=== PATIENT | female | born 1930 | race Caucasian/White ===

== ENCOUNTER 2016-10-20 08:08 | Day surgery (SDC) | payer MEDICARE, OTHER ==
[~2016-10-20] VITALS: Ht 157.5 cm; Wt 63.2 kg
[2016-10-20] VITALS (14 sets, daily range): BP systolic 99–132; BP diastolic 50–63; PULSE 59–66; RESP 11–20; TEMP 97.4–97.7; O2SAT 91–100; Ht 157.5 cm; Wt 63.2 kg
[~2016-10-20 08:08] MED LIST: CEFAZOLIN 1 GRAM INJECTION IV ONE; DONE5TAB14 PO; FENTANYL 100mcg/2ml INJECTION IV PRN; LIDOCAINE 1% (10mg/ml) 2ml SDV INJ ONE; LORA-326 PO; LR 1,000 ML IV SCH; MIDAZOLAM 5mg/5ml INJECTION IV PRN
--- OUTSIDE RECORDS SUMMARY | 2016-10-20 08:12 | XMS REPORT | Continuity of Care Document ---
Author Author [facility] Organization [facility] Address Unknown Phone Unavailable Support Name Relationship Address Phone NOLVIA HUNG DO Caregiver [facility] [address] [place] [address] PORTER JAMES DO Caregiver [address] [place] [phone] HALIMA MAZA (DPOA) Next Of Kin [address] [place], [place] [id number] Insurance Providers Payer Name Policy Number Subscriber Name Relationship Medicare [id number] Essence Bear 17 Self [employer] [place] [id number] Essence Bear 17 Self Advance Directives Directive Response Recorded Date/Time Advanced Directives Type Unable to Obtain 01/27/14 10:30am Problems Medical Problems Problem Onset Date Status Sinusitis Unknown Active Sinusitis Unknown Active Contusion, arm, upper Unknown Active Contusion, arm, upper Unknown Active Medications Medication Dose Route Sig Days/Qty Instructions Order Date Discontinued Date Status Amoxicillin Trihydrate 875 Mg PO TWICE A DAY 20 Qty 01/20/14 01/20/14 Discontinued Amoxicillin Trihydrate 500 Mg PO THREE TIMES A DAY 30 Qty 01/20/14 Active Donepezil Hcl 5 Mg PO BEDTIME 01/27/14 Active Loratadine 10 Mg PO DAILY 01/27/14 Active Social History Social History Problem Response Recorded Date/Time Smoking Status Unknown if ever smoked 01/27/2014 10:41am Hospital Discharge Instructions No hospital discharge instructions. Plan of Care No plan of care. Functional Status No functional status results. Allergies, Adverse Reactions, Alerts Allergen Type Severity Reaction Status Last Updated No Known Allergies Active 01/27/14 Immunizations No immunization records. Vital Signs Acute Vital Signs Vital Response Date/Time Temperature (Fahrenheit) 97.6 deg F (96.8 - 99.1) Temperature (Calculated Celsius) 36.91626 degrees C (36.0 - 37.3) Pulse Rate (adult) 74 bpm (60 - 100) Respiratory Rate 18 breaths/min (10 - 20) O2 Sat by Pulse Oximetry 97 % (90 - 100) Blood Pressure 114/56 mm Hg Height 5 ft 0 in Weight 116 lb Body Mass Index 22.0 kg/m^2 Results Test Source Date Result Interp. Ref. Range Comments Alanine Aminotransferase (ALT/SGPT) January 20, 2014 2:45pm 24 U/L N 9-52 Albumin January 20, 2014 2:45pm 4.3 G/DL N 3.5-5.0 Albumin/Globulin Ratio January 20, 2014 2:45pm 1.6 RATIO N 1.1-2.2 Alkaline Phosphatase January 20, 2014 2:45pm 60 U/L N 38-126 Anion Gap January 20, 2014 2:45pm 9 MEQ/L N 5-15 Aspartate Amino Transf (AST/SGOT) January 20, 2014 2:45pm 23 U/L N 14-36 BUN/Creatinine Ratio January 20, 2014 2:45pm 38 RATIO H 6-26 Basophils # (Auto) January 27, 2014 10:50am 0.0 T/MM3 N 0-0.2 Basophils (%) (Auto) January 27, 2014 10:50am 0.7 % N 0-2 Blood Urea Nitrogen January 20, 2014 2:45pm 19.0 MG/DL H 7-17 Calcium Level January 20, 2014 2:45pm 9.6 MG/DL N 8.4-10.2 Calculated Osmolality January 20, 2014 2:45pm 276 MOSM/KG N 261-280 Carbon Dioxide Level January 20, 2014 2:45pm 29 MEQ/L N 22-30 Chloride Level January 20, 2014 2:45pm 104 MEQ/L N 98-107 Creatinine January 20, 2014 2:45pm 0.5 MG/DL L 0.7-1.2 Eosinophils # (Auto) January 27, 2014 10:50am 0.0 T/MM3 N 0-0.5 Eosinophils (%) (Auto) January 27, 2014 10:50am 0.7 % N 0-4 Globulin January 20, 2014 2:45pm 2.7 G/DL N 2.4-3.6 Glucose Level January 20, 2014 2:45pm 114 MG/DL H 65-110 Hematocrit January 27, 2014 10:50am 39.0 % N 36-46 Hemoglobin January 27, 2014 10:50am 12.7 GM/DL N 12-16 Lymphocytes # (Auto) January 27, 2014 10:50am 0.4 T/MM3 L 1-4.8 Lymphocytes (%) (Auto) January 27, 2014 10:50am 9.9 % L 23-45 Mean Corpuscular Hemoglobin January 27, 2014 10:50am 30.8 UUG N 26-34 Mean Corpuscular Hemoglobin Concent January 27, 2014 10:50am 32.6 GM/DL N 31-37 Mean Corpuscular Volume January 27, 2014 10:50am 94.4 UM3 N 80-100 Mean Platelet Volume January 27, 2014 10:50am 9.6 UM3 N 9.4-12.4 Monocytes # (Auto) January 27, 2014 10:50am 0.4 T/MM3 N 0-0.8 Monocytes (%) (Auto) January 27, 2014 10:50am 8.7 % N 0-9.0 Neutrophils # (Auto) January 27, 2014 10:50am 3.6 T/MM3 N 1.8-7.7 Neutrophils (%) (Auto) January 27, 2014 10:50am 80.0 % H 33-66 Platelet Count January 27, 2014 10:50am 224 T/MM3 N 130-400 Potassium Level January 20, 2014 2:45pm 3.8 MEQ/L N 3.6-5 RDW Standard Deviation January 27, 2014 10:50am 47.0 FL N 36.9-50.2 Red Blood Count January 27, 2014 10:50am 4.13 M/MM3 N 4.00-5.20 Sodium Level January 20, 2014 2:45pm 142 MEQ/L N 134-144 Total Bilirubin January 20, 2014 2:45pm 1.60 MG/DL H 0.20-1.30 Total Protein January 20, 2014 2:45pm 7.0 G/DL N 6.3-8.2 Urine Bacteria January 20, 2014 2:30pm None seen - Has specimen been collected/obtained? Y Urine Bilirubin January 20, 2014 2:30pm Negative - Has specimen been collected/obtained? Y Urine Blood January 20, 2014 2:30pm 1+ H - Has specimen been collected/ obtained? Y Urine Collection Type January 20, 2014 2:30pm Voided-not cc-midstr - Has specimen been collected/obtained? Y Urine Color January 20, 2014 2:30pm Yellow - Has specimen been collected /obtained? Y Urine Glucose (UA) January 20, 2014 2:30pm Negative - Has specimen been collected/obtained? Y Urine Ketones January 20, 2014 2:30pm Negative - Has specimen been collected/obtained? Y Urine Leukocyte Esterase January 20, 2014 2:30pm Trace H - Has specimen been collected/obtained? Y Urine Nitrite January 20, 2014 2:30pm Negative - Has specimen been collected/obtained? Y Urine Protein January 20, 2014 2:30pm Negative - Has specimen been collected/obtained? Y Urine RBC January 20, 2014 2:30pm 1-3 /HPF - Has specimen been collected /obtained? Y Urine Specific [place] January 20, 2014 2:30pm 1.015 - Has specimen been collected/obtained? Y Urine Squamous Epithelial Cells January 20, 2014 2:30pm 0-5 - Has specimen been collected/obtained? Y Urine Turbidity January 20, 2014 2:30pm Clear - Has specimen been collected/obtained? Y Urine Urobilinogen January 20, 2014 2:30pm 1.0 EU/DL - Has specimen been collected/obtained? Y Urine WBC January 20, 2014 2:30pm 1-3 /HPF - Has specimen been collected /obtained? Y Urine pH January 20, 2014 2:30pm 6.0 - Has specimen been collected/ obtained? Y White Blood Count January 27, 2014 10:50am 4.5 T/MM3 N 4.5-11.0 Chemistry Specimen Hemolysis January 20, 2014 2:45pm < 15 0-25 0-25: No Hemolysis.26-70: Slight Hemolysis - can falsely elevate K and Urine Protein. 71-285: Moderate Hemolysis - can falsely elevate K, Troponin I, CA 19-9, PTH, CSF GLucose, and Urine Protein, and can falsely decrease Phenytoin. 286-999: Gross Hemolysis - can falsely elevate K, Troponin I, CA 19-9, PTH, CSF Glucose, and Urine Protine, and can falsely decrease Phenytoin. Recommend specimen recollection. Turbidity January 20, 2014 2:45pm < 20 0-20 Glomerular Filtration Rate Calc January 20, 2014 2:45pm 118 - Immature Granulocyte # (Auto) January 27, 2014 10:50am 0.00 T/MM3 N 0.00- 0.03 Immature Granulocyte % (Auto) January 27, 2014 10:50am 0.0 % N 0.0-0.5 Icterus Index January 20, 2014 2:45pm < 2 0-7 Procedures No known history of procedures. Encounters Encounter Location Date/Time Departed Emergency Room [facility] 01/27/14 10:23am Departed Emergency Room [facility] 01/20/14 12:59pm Recent Diagnosis
--- OUTSIDE RECORDS SUMMARY | 2016-10-20 08:12 | XMS REPORT | Continuity of Care Document ---
Author Author [facility] Organization [facility] Address Unknown Phone Unavailable Support Name Relationship Address Phone NOLVIA HUNG DO Caregiver [facility] [address] [place] [address] PORTER JAMES DO Caregiver [address] [place] [phone] HALIMA MAZA (DPOA) Next Of Kin [address] [place], [place] [id number] Insurance Providers Payer Name Policy Number Subscriber Name Relationship Medicare [id number] Essence Bear 17 Self [place] [employer] [place] [id number] Essence Bear 17 Self Advance Directives Directive [...] F (96.8 - 99.1) Temperature (Calculated Celsius) 36.48334 degrees C (36.0 - 37.3) Pulse Rate [...] specimen been collected /obtained? Y Urine Specific [place] January 20, 2014 2:30pm 1.015 - Has [...] Encounters Encounter Location Date/Time Departed Emergency Room [facility] 01/27/14 10:23am Departed Emergency Room [facility] 01/20/14 12:59pm Recent Diagnosis
--- OUTSIDE RECORDS SUMMARY | 2016-10-20 08:12 | XMS REPORT | Referral Summary ---
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 Discharge Diagnosis: Plantar fasciitis Discharge Diagnosis: Foot swelling Discharge Disposition: 01-Home or Self Care Attending Physician: Reyes Sanchez PA-C Admitting Physician: Reyes Sanchez PA-C Vital Signs Most recent to 1 oldest [Reference Range]: Temperature Tympanic 36.5 degC [36.6-38.1 degC] *LOW* (07/11/15 1:55 PM) Apical Heart Rate 74 bpm [60-100 bpm] (07/11/15 1:55 PM) Blood Pressure 114/66 mmHg [90-140/60-90 mmHg] (07/11/15 1:55 PM) SpO2 96 % (07/11/15 1:55 PM) Problem List No data available for this section Allergies, Adverse Reactions, Alerts No Known Medication Allergies Medications donepezil 10 mg, Oral, Bedtime (once a day), 0 Refill(s) Start Date: 07/11/15 Status: Ordered Results No data available for this section Immunizations No data available for this section Procedures No data available for this section Social History Social History Type Response Smoking Status Never smoker Assessment and Plan No data available for this section
--- NOTE | 2016-10-20 09:18 | ANESPREOP ---
Anesthesia Record Date and Time DATE: 10/20/16 TIME: 09:17 Proposed Surgical Procedure MOHS EXCISION SQUAMOUS CELL CA OF RT. DORSAL HAND WITH LOCAL VS. FLAP NPO since: MN Allergies: Coded Allergies: No Known Allergies (Unverified , 10/19/16) Ht/Wt/BMI Height: 5 ' 2.00 " Weight: 63.200 kg BMI: 25.5 kg/m2 Vital Signs Date Time Temp Pulse Resp B/P Pulse Ox O2 Delivery O2 Flow Rate FiO2 10/20/16 08:44 97.4 62 14 132/63 96 Room Air Medications Inpatient Medications Current Medications Medications (Trade) Dose Ordered Sig/Enmanuel Start Time Stop Time Status Last Admin Dose Admin Lactated Ringer's (Lactated Ringers) 1,000 ml @ 50 mls/hr Q20H 10/20/16 07:00 10/20/16 08:49 50 MLS/HR Midazolam HCl (Versed) 0.5-3MG IV PUSH Q10MIN PRN PRN PRN 10/20/16 08:00 Fentanyl (Fentanyl) 25-50 MCG IV PUSH PRN NOT... PRN PRN 10/20/16 08:00 Donepezil Hcl (Donepezil Hcl) 5 Mg Tablet, 5 MG PO HS, (Reported) Last Taken: on 10/19/162099 Loratadine (Claritin) 10 Mg Tablet, 10 MG PO DAILY, (Reported) Last Taken: on 10/19/16 Currently on Beta Rashmi: No Medical/Surgical History Anesthesia PMH: Reports: Arthritis, Cancer (SSC SKIN ), Other (DIMENTIA), Denies: Anesthesia Reactions (NO AIRWAY ISSUES), Glaucoma, Malignant Hyperthermia, Sleep Apnea Smoking Status: Never smoker Has pt. smoked today?: No Use Chewing Tobacco?: No Second Hand Exposure: No Substance Use Type: does not use Alcohol Intake: none HX of Last Menstrual Period: IN HER 50'S Past Surgical History Orthopedic Surgeries: Abdominal Surgeries: Genitourinary Surgeries: Cardiac Surgeries: Endocrine Surgeries: Reproductive Surgeries: Yes - BREAST BIOPSY, HYSTERECTOMY Neurological Surgeries: Ear Surgeries: Nose Surgeries: Throat Surgeries: Yes - TONSILLECTOMY Other Surgeries: Yes - WISDOM TEETH REMOVAL Anesthesia Adverse Reactions: FOUND none Family Hx of Anesthesia Advers: none Hx of Motion Sickness: No Physical Exam Respiratory: Bilat breath sounds equal, Lungs clear Cardiovascular: FOUND Regular rate, rhythm Airway Assessment Mallampati Score: II Neck Extension: Fair Overall Assessment: No Airway Concerns ASA: 3 Plan Anesthesia Plan: TIVA, LMA, GETA, MAC Discussion Discussed risks/options/alternatives of anesthesia and questions answered. Patient consents. Nursing pain assessment noted. Present: Family Member (DPOA at bedside to answer questions.) Attestation Statement Prior to the delivery of any anesthetic medication, I examined the patient, developed the plan, obtained the patient's consent and discussed the risk and benefits of the procedure with the patient/guardian. TRACEE RAHMAN CRNA Oct 20, 2016 09:18
--- NOTE | 2016-10-20 09:43 | NUR ---
Time out completed by Joe Delgado R.N.,Dr. Suarez, and Nathan Bran R.N. present with 2 fire risk noted. Ancef 1 gm IV given per Dr. Suarez written order by Joe Delgado R.N., see emar for time. Versed 1 mg IV at 0915 and Fentanyl 25 mcg IV given by Joe Delgado R.N., see emar for dose and times. Cautery at 20, lesion size 1.4, excision size 2.3 squamous cell right dorsal hand, tag at 12 distal. Await results. Results for margins negative given to Dr. Suarez.
--- NOTE | 2016-10-20 09:50 | NUR ---
CARDIAC TRANSITIONING PT OUT OF MODERATE SEDATION POST LESION REMOVAL PROCEDURE. PT DOZING ON CART WITH EYES CLOSED. NOTED TO HAVE BRIEF, SELF LIMITING RUN OF JUNCTIONAL RHYTHM, LESS THAN 10 SECONDS. PT RESPIRATIONS EVEN, UNLABORED AND UNCHANGED. PT DENIES ANGINA, SOA. PT THEN RETURNED TO BASELINE RHYTHM OF SB-SR WITH OCCASIONAL PAC'S BY SELF. RATE 58-63. M. AGPOON PRODUCTION REPRODUCTION MANAGER NOTIFIED, NO NEW ORDERS. WILL CONTINUE TO MONITOR PT.
[2016-10-20] MEDS ORDERED: MIDAZOLAM 2mg/2ml INJECTION ONE (10:27)
[2016-10-20] MEDS ORDERED: CEPH-583 PO (11:09)
[2016-10-20] MEDS ORDERED: ACET1TAB12 PO (11:09)
--- NOTE | 2016-10-20 11:11 | ANESPO ---
Post-Op Note Date 10/20/16 Time: 11:11 Status Pt Participated in Evaluation: Pt participated in person Vital Signs Date Time Temp Pulse Resp B/P Pulse Ox O2 Delivery O2 Flow Rate FiO2 10/20/16 09:55 61 16 119/56 100 Nasal Cannula 2.00 10/20/16 08:44 97.4 Respiratory Function: Airway patent, Regular respirations Cardiovascular Function: Regular pulse Mental Status: Alert/oriented Pain Level Intensity: 0 Hydration: Taking po fluids Complications during Recovery None apparent Follow-Up Instructions Instructions Per Surgeon TRACEE RAHMAN CRNA Oct 20, 2016 11:11
[2016-10-20] MEDS ORDERED: HYDROCODONE/APAP 5 mg/325 mg TABLET PO PRN (11:15)
[2016-10-20] MEDS ORDERED: ONDANSETRON 4mg/2ml INJECTION IV PRN (11:15)
[2016-10-20] MEDS ORDERED: ATROPINE 1mg/10ml Syringe IV PRN (11:15)
--- NOTE | 2016-10-20 12:31 | PDPROCED ---
Procedure Note Date 10/20/16 Procedure Name Excision of SCC right dorsal hand with frozen section guidance of margins and complex closure Procedure Detail Preop dx: SCC right dorsal hand first webspace Postop dx: Same Anesthesia: MAC EBL: Less than 15 ml Case: Clean Complications: None JASEN MAGAÑA MD Oct 20, 2016 12:31
--- NOTE | 2016-10-20 16:58 | OPNOTEF ---
DATE OF OPERATION 10/20/2016 PREOPERATIVE DIAGNOSIS Squamous cell carcinoma right dorsal hand. POSTOPERATIVE DIAGNOSIS Squamous cell carcinoma right dorsal hand. OPERATION Excision of squamous cell carcinoma right dorsal hand with complex closure. Lesion size was 1.4 cm. Excision size was 2.3 cm and final defect was 3.2 cm. SURGEON Ana Suarez M.D. ANESTHESIA MAC INDICATIONS The patient is an 86-year-old woman who was referred by Dr. 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 She did present with her son, Geoffrey, on her initial visit. A shave biopsy had been performed by Dr. Gibson on 09/15/2016 with pathology showing squamous cell carcinoma, moderately well differentiated, present at the margins. The patient was unsure of how long the lesion had been present. The patient did deny bleeding but states that it was painful when she hits it. They denied any personal or family history of skin cancer. On exam, she had a hyperkeratotic and erythematous lesion of her right dorsal hand overlying the first web space. In detailed discussion with the patient and her son preoperatively, the risks, benefits and alternatives of excision of the lesion with frozen section guidance of margins and closure were reviewed including, but not limited to, bleeding, infection, poor or keloid scarring, residual and/or recurrent disease, possible partial or complete loss of the flap or graft. The son understood and wished to proceed. DESCRIPTION OF PROCEDURE The patient was marked preoperatively and then, after suitable IV sedation, the hand was prepped and draped in the usual sterile manner. The area was then infiltrated with 1% lidocaine with epinephrine. The lesion was excised and handed off as a specimen with a tag at the 12 o'clock margin. Hemostasis throughout was obtained with electrocautery. Subsequent pathologic evaluation revealed squamous cell carcinoma with clear margins. The patient was then brought to the operating room and again prepped and draped in the usual sterile manner. The area was infiltrated with 1% lidocaine with epinephrine and then widely undermined. Dog ears were removed and the wound was closed in one layer using interrupted sutures of 5-0 nylon. Benzoin and Steri-Strips were applied, as well as a dry sterile dressing and Mefix tape. Estimated blood loss was less than 15 mL. The case was clean. Specimens: Squamous cell carcinoma of the right dorsal hand. [facility]
== END 2016-10-20 11:50 | disposition home or self-care (01) ==
LOC: SCU 08:08
PROVIDERS: ATTEND Surgery Plastic and Reconstructive Surgery
DX: C44.622 Squamous cell carcinoma of skin of right upper limb, including shoulder (principal)
CPT/HCPCS: 11623; 13132; 88305; 88331; 88332; J0690; J2250; J3010; J7120